=== PATIENT | female | born 1965 | race Asian ===

== ENCOUNTER 2017-04-08 07:34 | Emergency (ER) | payer OTHER ==
[~2017-04-08] VITALS: Ht 154.9 cm; Wt 68.4 kg
[2017-04-08 07:37] VITALS: Ht 154.9 cm; Wt 68.4 kg
[2017-04-08] MEDS ORDERED: OXYMETAZOLINE 0.05% 15 ML NAS SPRAY NASAL ONE (08:00)
[2017-04-08] MEDS ORDERED: BENZ100C70 PO (09:43)
[2017-04-08 10:30] VITALS: BP 159/90; PULSE 75; RESP 18; TEMP 98
--- NOTE | 2017-04-08 11:25 | ERD ---
ER Documentation Chief Complaint Chief Complaint nose bleed , cough , chest congestion , headcahe HPI This is a 51-year-old female history of hypertension who takes aspirin who presents with multiple complaints. She does describe nasal congestion and dry nonproductive cough. However the reason she is visiting today as she has epistaxis. She has noted that her blood pressures been elevated but did not take yesterday's evening dose of today's morning dose. She denies anticoagulants other than aspirin. Headache is mild, frontal and consistent with sinus headaches in the past. ROS All systems reviewed and are negative except as per history of present illness. Medications Home Meds Active Scripts Benzonatate* (Tessalon Perle*) 100 Mg Capsule, 100 MG PO Q8H Y for COUGH, #20 CAP Prov:MONA THOMAS MD 04/08/17 PMhx/Soc Medical and Surgical Hx: pt denies Surgical Hx History of Surgery: No Anesthesia Reaction: No Hx Neurological Disorder: No Hx Respiratory Disorders: No Hx Cardiac Disorders: No Hx Psychiatric Problems: No Hx Miscellaneous Medical Probl: Yes (HTN) Hx Alcohol Use: No Hx Substance Use: No Hx Tobacco Use: No Smoking Status: Never smoker FmHx Family History: No diabetes Physical Exam Vitals Vital Signs Date Time Temp Pulse Resp B/P Pulse Ox O2 Delivery O2 Flow Rate FiO2 04/08/17 10:30 98.0 75 18 159/90 98 Room Air 04/08/17 09:23 89 20 162/94 97 Room Air 04/08/17 08:32 93 18 161/97 97 Room Air 04/08/17 07:37 99.2 112 18 211/88 98 Physical Exam General: Well developed, well nourished, no acute distress Head: Normocephalic, atraumatic. Eyes: Pupils equally reactive, EOM intact ENT: Epistaxis right nare greater than left that is persistent with evidence of dry cracking in the anterior plexus Neck: Supple, no lymphadenopathy Respiratory: Lungs clear bilaterally, no distress Cardiovascular: RRR, no murmurs, rubs, or gallops Abdominal: Soft, non-tender, non-distended, no peritoneal signs : Deferred MSK: No edema, no unilateral swelling, 5/5 strength Neurologic: Alert and oriented, moving all extremities, normal speech, no focal weakness, no cerebellar signs Skin: No rash Psych: Normal mood Results 24 hrs Current Medications Medications (Trade) Dose Ordered Sig/Tash Route PRN Reason Start Time Stop Time Status Last Admin Dose Admin Oxymetazoline HCl (Afrin [place]) 2 spray ONCE ONCE NASAL 04/08/17 08:00 04/08/17 08:01 DC Procedures/MDM MEDICAL DECISION MAKING: The patient presents to the emergency room with epistaxis and elevated blood pressure. Her headache is likely secondary to the elevated blood pressure. She has a nonfocal neurologic exam without signs of intracranial hemorrhage. No indication for CT brain. Epistaxis is likely secondary to hypertension and dry mucous membranes. ER COURSE: The patient's bilateral nares were packed with Afrin-soaked cotton swabs. They were left in for approximately 10 minutes. They were removed intact, inspection reveals dry mucous membranes but no active bleeding. No indication for nasal packing. Her blood pressure trended down without intervention. She is now asymptomatic. She still has a cough and a likely URI but this can be treated with symptomatic control. The patient is asking for cough medication which is reasonable. No signs of coagulopathy no indication for laboratory testing. I kept the patient and/or family informed of laboratory and diagnostic imaging results throughout the emergency room course. DISPOSITION PLAN: We discussed follow up with the patient's primary care doctor within 24 to 48 hours as needed. We also discussed return to the emergency room for worsening symptoms or worsening condition. Outpatient referral: [None required] Discharge Medications: Manuel Ozuna Departure Diagnosis: Primary Impression: Hypertensive urgency Additional Impression: Epistaxis Condition: Stable Patient Instructions: Epistaxis (Adult) Referrals: [facility] YOU HAVE RECEIVED A MEDICAL SCREENING EXAM AND THE RESULTS INDICATE THAT YOU DO NOT HAVE A CONDITION THAT REQUIRES URGENT TREATMENT IN THE EMERGENCY DEPARTMENT. FURTHER EVALUATION AND TREATMENT OF YOUR CONDITION CAN WAIT UNTIL YOU ARE SEEN IN YOUR DOCTORS OFFICE WITHIN THE NEXT 1-2 DAYS. IT IS YOUR RESPONSIBILITY TO MAKE AN APPOINTMENT FOR FOLOW-UP CARE. IF YOU HAVE A PRIMARY DOCTOR --you should call your primary doctor and schedule an appointment IF YOU DO NOT HAVE A PRIMARY DOCTOR YOU CAN CALL OUR PHYSICIAN REFERRAL HOTLINE AT IF YOU CAN NOT AFFORD TO SEE A PHYSICIAN YOU CAN CHOSE FROM THE FOLLOWING [facility] [address] [facility]. [facility] [address] [facility]. [facility] [address] [facility]. [facility] [address] [facility]. [facility] [address] [facility]. [facility]. [address] [facility]. [facility] YOU HAVE RECEIVED A MEDICAL SCREENING EXAM AND THE RESULTS INDICATE THAT YOU DO NOT HAVE A CONDITION THAT REQUIRES URGENT TREATMENT IN THE EMERGENCY DEPARTMENT. FURTHER EVALUATION AND TREATMENT OF YOUR CONDITION CAN WAIT UNTIL YOU ARE SEEN IN YOUR DOCTORS OFFICE WITHIN THE NEXT 1-2 DAYS. IT IS YOUR RESPONSIBILITY TO MAKE AN APPOINTMENT FOR FOLOW-UP CARE. IF YOU HAVE A PRIMARY DOCTOR --you should call your primary doctor and schedule and appointment IF YOU DO NOT HAVE A PRIMARY DOCTOR YOU CAN CALL OUR PHYSICIAN REFERRAL HOTLINE AT . IF YOU CAN NOT AFFORD TO SEE A PHYSICIAN YOU CAN CHOSE FROM THE FOLLOWING [facility] INSTITUTIONS: [facility] [address] [place] [address] [facility] [address] [place], [place] [id number] [place] [address] + [facility] [address] [place] [address] Additional Instructions: Call your primary care doctor TOMORROW for an appointment during the next 1 WEEK.Tell the traveling secretary that you were referred from this facility.See the doctor sooner or return here if your condition worsens before your appointment time. MONA THOMAS MD Apr 08, 2017 11:25
== END 2017-04-08 10:37 | disposition home or self-care (01) ==
LOC: E/R 07:34
DX: I16.0 Hypertensive urgency (principal); I10 Essential (primary) hypertension
CPT/HCPCS: 30901; Z7502; Z7610

== ENCOUNTER 2017-04-10 12:23 | Emergency (ER) | payer OTHER ==
[~2017-04-10] VITALS: Ht 162.6 cm; Wt 69.4 kg
[~2017-04-10 12:23] MED LIST: BENZ100C70 PO
[2017-04-10 12:32] VITALS: Ht 162.6 cm; Wt 69.4 kg
--- NOTE | 2017-04-10 12:50 | ERD ---
ER Documentation Chief Complaint Chief Complaint Nose started to bleed while driving in freeway. here 2 days ago same issue HPI 51-year-old woman with right sided epistaxis intermittently over the last few days. She denies trauma, no fevers or chills, no dizziness, no complaints of chest pain or shortness of breath. This is her second visit to this ED for the same complaint. There is no active bleeding in the ED. ROS All systems reviewed and are negative except as per history of present illness. Medications Home Meds Active Scripts Benzonatate* (Tessalon Perle*) 100 Mg Capsule, 100 MG PO Q8H Y for COUGH, #20 CAP Prov:MONA THOMAS MD 04/08/17 PMhx/Soc Hypertension History of Surgery: No Anesthesia Reaction: No Hx Neurological Disorder: No Hx Respiratory Disorders: No Hx Cardiac Disorders: No Hx Psychiatric Problems: No Hx Miscellaneous Medical Probl: Yes (HTN) Hx Alcohol Use: No Hx Substance Use: No Hx Tobacco Use: No Physical Exam Vitals Vital Signs Date Time Temp Pulse Resp B/P Pulse Ox O2 Delivery O2 Flow Rate FiO2 04/10/17 13:39 98.5 96 18 129/68 99 Room Air 04/10/17 12:32 99.0 100 20 198/98 98 Physical Exam GENERAL: Well-developed, well-nourished, well-hydrated, in no apparent distress , looks nontoxic in appearance HEENT: There is evidence of recent bleeding from the right anterior nare, no active bleeding at this time. Moist mucous membranes, pink conjunctiva, no cervical spine tenderness or step-off deformities, no goiter, no jaundice or icterus, extraocular movements intact without pain. No submandibular induration , and no pharyngeal erythema NEURO: Alert and oriented 3, cranial nerves II through XII intact bilaterally, pupils equal round reactive to light, no focal deficits or facial asymmetry, sensation intact distally Strength 5/5 in upper and lower extremities bilaterally CARDIAC: Regular rate and rhythm, no murmurs rubs or gallops LUNGS: Clear bilaterally no wheezing crackles or stridor ABDOMEN: Soft nontender, no guarding, no rigidity, no rebound, no psoas sign no obturator sign. Normoactive bowel sounds SKIN: Warm and dry to touch, no abrasions, contusions, or hematomas, no lacerations, no ecchymosis, no target lesions, and without ulcers EXTREMITIES: No clubbing cyanosis or edema, calves are bilaterally symmetrical, no Homans sign, no popliteal cord sign. Distal pulses equal and bilateral PSYCH: Normal affect without agitation or irritability Result Diagram: 04/10/17 1253 Results 24 hrs Laboratory Tests Test 04/10/17 12:53 White Blood Count 10.510^3/ul Red Blood Count 4.3710^6/ul Hemoglobin 13.6g/dl Hematocrit 40.2% Mean Corpuscular Volume 92.0fl Mean Corpuscular Hemoglobin 31.1pg Mean Corpuscular Hemoglobin Concent 33.8g/dl Red Cell Distribution Width 11.9% Platelet Count 26768^3/UL Mean Platelet Volume 10.1fl Neutrophils % 70.6% Lymphocytes % 21.0% Monocytes % 6.4% Eosinophils % 1.2% Basophils % 0.5% Nucleated Red Blood Cells % 0.0/100WBC Neutrophils # 7.410^3/ul Lymphocytes # 2.210^3/ul Monocytes # 0.710^3/ul Eosinophils # 0.110^3/ul Basophils # 0.110^3/ul Nucleated Red Blood Cells # 0.010^3/ul Current Medications Medications (Trade) Dose Ordered Sig/Tash Route PRN Reason Start Time Stop Time Status Last Admin Dose Admin Phenylephrine HCl (Harshad-Synephrine 0.5% [place]) 1 spray ONCE ONCE NASAL 04/10/17 13:00 04/10/17 13:01 DC 04/10/17 13:05 Clonidine (Catapres) 0.1 mg ONCE ONCE PO 04/10/17 13:00 04/10/17 13:01 DC 04/10/17 13:05 Procedures/MDM I administered clonidine 0.1 mg p.o. for hypertension. Phenylephrine nasal spray was applied to the right naris to help with recent epistaxis. CBC was normal. Differential diagnoses considered, included but not limited to acute coronary syndrome, pulmonary embolism, aortic dissection, abdominal aortic aneurysm, sepsis, stroke, meningitis, encephalitis, pneumonia, appendicitis, cholecystitis , bowel obstruction, pyelonephritis, nephrolithiasis, cystitis, as well as metabolic, hematologic, and electrolyte abnormalities. As well as abscess, cellulitis, fractures, and dislocations. Patient feels much better at this time, and vital signs are normal, symptoms have improved. I did give strict instructions to return to the ED if symptoms continue or worsen, patient will otherwise follow-up with primary care physician. Patient understood instructions and agreed to plan. Disclaimer: Inadvertent spelling and grammatical errors are likely due to EHR/ dictation software use and do not reflect on the overall quality of patient care. Also, please note that the electronic time recorded on this note does not necessarily reflect the actual time of the patient encounter. Departure Diagnosis: Primary Impression: Epistaxis Additional Impression: Hypertensive urgency Condition: Good Patient Instructions: Epistaxis (Adult), Hypertension, Established DAHLIA MAHONEY MD Apr 10, 2017 12:50
[2017-04-10 12:59] LABS: BASOPHIL # 0.1 10^3/ul (0.0-0.1); BASOPHILS % 0.5 % (0.0-2.0); EOSINOPHILS # 0.1 10^3/ul (0.0-0.5); EOSINOPHILS % 1.2 % (0.0-7.0); HEMATOCRIT 40.2 % (37.0-47.0); HEMOGLOBIN 13.6 g/dl (12.0-16.0); LYMPHOCYTES # 2.2 10^3/ul (0.8-2.9); MEAN CORPUSCULAR HEMOGLOBIN 31.1 pg (29.0-33.0); MEAN CORPUSCULAR HGB CONC 33.8 g/dl (32.0-37.0); MEAN PLATELET VOLUME 10.1 fl (7.4-10.4); MONOCYTE # 0.7 10^3/ul (0.3-0.9); MONOCYTES % 6.4 % (0.0-11.0); NEUTROPHIL # 7.4 10^3/ul (1.6-7.5); NEUTROPHILS % 70.6 % (39.0-77.0); PLATELET COUNT 271 10^3/UL (140-415); RED BLOOD COUNT 4.37 10^6/ul (4.20-5.40); RED CELL DISTRIBUTION WIDTH 11.9 % (11.5-14.5); WHITE BLOOD COUNT 10.5 10^3/ul (4.8-10.8)
[2017-04-10] MEDS ORDERED: PHENYLephrine 0.5% 15 ML NAS SPRAY NASAL ONE (13:00)
[2017-04-10 13:39] VITALS: BP 129/68; PULSE 96; RESP 18; TEMP 98.5
== END 2017-04-10 17:35 | disposition home or self-care (01) ==
LOC: E/R 12:23
DX: R04.0 Epistaxis (principal); R40.2252 Coma scale, best verbal response, oriented, at arrival to emergency department; I16.0 Hypertensive urgency; I10 Essential (primary) hypertension
CPT/HCPCS: 85025; Z7502; Z7610; 99283